=== PATIENT | female | born 1980 | race African-American/Black ===

== ENCOUNTER 2017-01-13 10:36 | Emergency (ER) | payer OTHER ==
--- NOTE | ~2017-01-13 | US84 ---
[id number] [address] [address] [id number] E MR#: [id number] Acc #: [id number] NAME: SAQIB KHAN : 1980 SEX: F STUDY DATE/TIME: 01/13/2017 11:10 UNIT: SED ROOM: STUDY DESCRIPTION: US LE Veins Complete Myke Stdy Attending Physician: Carlos Guillory Ordering Physician: Physician Non-Staff Primary Care Physician: Donna Ramon MEDICAL IMAGING REPORT This report is preliminary unless electronic signature is present. EXAM Bilateral lower extremity Doppler venous ultrasound. 01/13/2017 HISTORY Bilateral lower extremity pain for 2 weeks. COMPARISON None. TECHNIQUE Venous ultrasound examination of both lower extremities was performed using grayscale, spectral Doppler and color flow Doppler imaging. FINDINGS The examination is negative. There is no evidence of deep venous thrombus from the groin to the lower calf bilaterally. Visualized greater saphenous veins are also patent. IMPRESSION Negative examination. No evidence of lower extremity DVT. Dictated by... Elizabeth Gardner M.D. THIS IS AN ELECTRONICALLY VERIFIED REPORT Elizabeth Gardner M.D. at 01/14/2017 7:08 AM [place] TD: 01/13/2017 18:24 JOB #: [id number] MEDICAL IMAGING REPORT Page 1 of 1
[~2017-01-13 10:36] MED LIST: BACTRIM DS TABL1 TA1 PO; LORTAB 5-325 M1 EACH PO; NO MEDICATIONS; PHENERGAN25 M1 DOB; VOLTAREN75 MG PO
[2017-01-13 11:45] LABS: URINE SOURCE CLEAN CATCH
[2017-01-13 11:46] LABS: URINE APPEARANCE CLEAR; URINE BILIRUBIN NEG (NEG); URINE BLOOD TRACE-INTACT (NEG); URINE COLOR YELLOW; URINE GLUCOSE NEG (NORM); URINE KETONE NEG (NEG); URINE LEUKOCYTE ESTERASE NEG (NEG); URINE NITRATE NEG (NEG); URINE PH 7.5 (5-8); URINE PROTEIN NEG (NEG); URINE UROBILINOGEN 0.2 MG/DL (NORM)
[2017-01-13 11:49] LABS: MICRO INDICATED? YES
[2017-01-13 11:52] LABS: CULTURE INDICATED? NO; URINE BACTERIA NEG (NEG); URINE RBC 0-2 /[HPF] (0-2); URINE WBC 0-2 /[HPF] (0-5)
== END 2017-01-13 13:54 | disposition home or self-care (01) ==
LOC: SED 10:36
PROVIDERS: Nurse Practitioner
DX: M06.9 Rheumatoid arthritis, unspecified (principal); F17.210 Nicotine dependence, cigarettes, uncomplicated; Z98.51 Tubal ligation status
CPT/HCPCS: 81003; 84703; 93970; 96372; 99284; J1885